=== PATIENT | male | born 1950 | race Caucasian/White ===

== ENCOUNTER 2018-05-02 20:33 | Emergency (ER) | payer MEDICARE ==
[~2018-05-02] VITALS: Ht 182.9 cm; Wt 72.0 kg
[2018-05-02] MEDS ORDERED: KETOROLAC 30MG/ML VIAL IV STA (22:09)
[2018-05-02] MEDS ORDERED: SODIUM CHLORIDE 0.9% 1,000 ML IV ONE (22:09)
[2018-05-03 00:12] LABS: CHLORIDE 104 mEq/L (98-107)
[2018-05-03 00:16] LABS: BASOPHILS % 0.8 % (0.0-2.0); EOSINOPHILS % 3.8 % (0.0-5.0); HEMATOCRIT. 40.8 % (42.0-52.0); HEMOGLOBIN. 13.4 g/dL (14.0-18.0); LYMPHOCYTES % 27.2 % (20.0-50.0); MEAN CORPUSCULAR VOLUME 94.3 fL (80.0-94.0); MEAN PLATELET VOLUME 9.3 fl (7.4-10.4); MONOCYTES % 9.9 % (2.0-8.0); NEUTROPHILS % 58.3 % (40.0-76.0); PLATELET 252 x1000/uL (130-400); RED BLOOD CELL COUNT 4.33 mill/uL (4.7-6.1); RED CELL DISTRIBUTION WIDTH 15.4 % (11.6-14.6)
[2018-05-03 02:51] LABS: CLARITY URINE CLOUDY (CLEAR); COLOR URINE YELLOW (YELLOW); KETONES URINE NEGATIVE (NEGATIVE); LEUKOCYTE ESTERASE URINE 3+ (NEGATIVE); NITRITE URINE NEGATIVE (NEGATIVE); OCCULT BLOOD URINE NEGATIVE (NEGATIVE); PROTEIN URINE NEGATIVE (NEGATIVE)
[2018-05-03] MEDS ORDERED: ACETAMINOPHEN 325MG TABLET PO PRN (05:15)
[2018-05-03] MEDS ORDERED: CLONIDINE 0.1MG TABLET PO SCH (05:30)
[2018-05-03] MEDS ORDERED: AMLODIPINE 5MG TABLET PO SCH (05:30)
[2018-05-03] MEDS ORDERED: NICOTINE 14MG PATCH TOP SCH (06:00)
[2018-05-03] MEDS ORDERED: LEVOFLOXACIN 500MG TABLET PO NR (06:00)
[2018-05-03 07:45] VITALS: BP 145/89
== END 2018-05-03 09:42 | disposition home or self-care (01) ==
LOC: ER 20:33 → EDBEDREQ 05-03 00:52 → ENRESERV 05-03 06:56 → CANRESERV 05-03 06:56 → ER 05-03 09:42 → CANBEDREQ 05-03 09:54
DX: R10.32 Left lower quadrant pain (principal); K40.90 Unilateral inguinal hernia, without obstruction or gangrene, not specified as recurrent; K57.90 Diverticulosis of intestine, part unspecified, without perforation or abscess without bleeding; N39.0 Urinary tract infection, site not specified; R68.84 Jaw pain; I10 Essential (primary) hypertension; Z87.891 Personal history of nicotine dependence; Z59.0 Homelessness
CPT/HCPCS: 36415; 70450; 74176; 80053; 81003; 85025; 87086; 96374; 99285; J1885; J7030